=== PATIENT | male | born 1950 | race Caucasian/White ===

== ENCOUNTER 2018-05-19 10:34 | Observation (INO) | payer OTHER ==
[~2018-05-19] VITALS: Ht 170.2 cm; Wt 100.0 kg
--- NOTE | ~2018-05-19 | HEMODYNAMI ---
PATIENT:RADHA MELGAR MEDICAL RECORD: [id number] : 46 [facility] [id number] ADMISSION DATE: 05/19/18 Generatedon:05/19/201816:28 Patient name: RADHA MELGAR Patient #: [id number] SSN: : 1950 Date of study: 05/19/2018 Page: Of Hemodynamic Procedure Report Patient Data Patient Demographics Procedure consent was obtained First Name: RADHA Gender: Male Last Name: RAMÓN : 1950 Patient #: [id number] Age: 67 year(s) Race: Unknown Additional ID: [id number] Contact details [address]: [address] [place] [address] State: [place] City: [place] Zip code: [address] Past Medical History Allergies Allergen Reaction Date Comments Reported Aspirin 05/19/2018 Admission Admission Data Admission Date: 05/19/2018 Admission Time: 13:01 Room #: D.E08 Lab Results Lab Result Date: 05/19/2018 Lab Result Time: 0:00 Biochemistry Name Units Result Min Max BUN mg/dl 19 --(----)*- 7 18 Creatinine mg/dl 1 --(--*-)-- 0.6 1.3 CBC Name Units Result Min Max Hematocrit % 38.7 *-(----)-- 42 54 Hemoglobin g/dl 14.3 --(*---)-- 13.5 17.5 Procedure Procedure Types Cath Procedure Diagnostic Procedure LHC LH w/Coronaries Sedation Charges Moderate Sedation up to 30 minutes PCI Procedure Coronary Stent Coronary Stent Initial Procedure Description Procedure Date Procedure Date: 05/19/2018 Procedure Start Time: 16:10 Procedure End Time: 16:26 Procedure Staff Name Function Navin Rahman MD Performing Physician Lisa Meeks RT Monitor Chana Preciado RT Scrub Luther Vences RN Nurse Fan Casas RT Roll Over Press Operator Matilde Sandoval RT Monitor Procedure Data Cath Procedure Fluoroscopy Diagnostic fluoroscopy Total fluoroscopy Time: 5.6 time: 5.6 min min Diagnostic fluoroscopy Total fluoroscopy dose: dose: 1017 mGy 1017 mGy Contrast Material Contrast Material Type Amount (ml) Isovue 300 94 Entry Location Entry Primary Successful Side Size Upsize Upsize Entry Closure Pratt ccessful Closure Location (Fr) 1 (Fr) 2 (Fr) Remarks Device Remarks Radial Right 6 Fr Mechanical artery Short Compression Estimated blood loss: 10 ml Diagnostic catheters Device Type Used For End Catheter Placement DIAGNOSTIC Bast[place] 110cm 5 Procedure Fr catheter (100059) Procedure Complications No complications Procedure Medications Medication Administration Route Dosage Oxygen etCO2 Nasal cannula 2 l/min Heparin Flush Bag added to field 2 bags (1000units/500ml NS) 0.9% NaCl I.V. 100 ml/hr Lidocaine 2% added to field 20 Radial Cocktail added to field 1 syringe (Verapomil 2mg/Nitro 400mcg/Heparin 1500units) Fentanyl I.V. 50 mcg Versed I.V. 1 mg Fentanyl I.V. 50 mcg Versed I.V. 1 mg Radial Cocktail I.A. 1 syringe (Verapomil 2mg/Nitro 400mcg/Heparin 1500units) Heparin Bolus I.V. 4000 units Hemodynamics Rest HGB: 14.3 (g/dl) Heart Rate: 64 (bpm) Snapshots Pre Cath Intra NCS Post Cath Vital Signs Time Heart Resp SPO2 etCO2 NIBP (mmHg) Rhythm Pain Sedation Rate (ipm) (%) (mmHg) Status Level (bpm) 16:04:33 70 16 98 27 114/90(106) NSR 0 (11) 10(A) , No pain 16:09:17 60 17 98 17.9 147/92(110) NSR 0 (11) 10(A) , No pain 16:13:23 79 17 94 11.2 132/91(104) NSR 0 (11) 9(A) , No pain 16:17:25 81 17 94 16.4 132/87(106) NSR 0 (11) 9(A) , No pain 16:21:28 82 16 95 9.7 130/79(103) NSR 0 (11) 9(A) , No pain 16:25:30 77 17 96 36 132/87(110) NSR 0 (11) 9(A) , No pain Medications Time Medication Route Dose Verified Delivered Reason Not es Effectiveness by by 16:08:06 Oxygen etCO2 2 l/min Navin Sloan Per physician Nasal Lacey Vences RN cannula 16:08:14 Heparin Flush added 2 bags Navin Sloan used for Bag to Lacey Vences RN procedure (1000units/500ml field NS) 16:08:22 0.9% NaCl I.V. 100 Navin Sloan Per physician ml/hr Lacey Vences RN 16:08:30 Lidocaine 2% added 20ml Navin Sloan used for to vial Lacey Vences RN procedure field 16:08:38 Radial Cocktail added 1 Navin Sloan used for (Verapomil to syringe Lacey Vences RN procedure 2mg/Nitro field 400mcg/Heparin 1500units) 16:08:44 Fentanyl I.V. 50 mcg Navin Sloan for sedation Lacey Vences RN 16:08:49 Versed I.V. 1 mg Navin Sloan for sedation Lacey Vences RN 16:11:29 Fentanyl I.V. 50 mcg Navin Sloan for sedation Lacey Vences RN 16:11:33 Versed I.V. 1 mg Navin Sloan for sedation Lacey Vences RN 16:11:42 Radial Cocktail I.A. 1 Navin Navin for (Verapomil syringe Lacey Rahman MD vasodilation 2mg/Nitro 400mcg/Heparin 1500units) 16:17:11 Heparin Bolus I.V. 4000 Navin Sloan for units Lacey Vences RN anticoagulation Procedure Log Time Note 15:48:46 Signed procedure consent form obtained from patient. 15:48:47 Diagnostic Cath status Elective 15:48:52 Fan Casas RT(R) sent for patient. Start room use. 16:03:27 Patient received from ED to CCL 2 Alert and oriented. Tansferred to table in Supine position. 16:03:28 Warm blankets applied, and darian hugger turned on for patient comfort. 16:03:28 Correct patient and procedure confirmed by team. 16:03:29 ECG and BP/O2 sat monitors applied to patient. 16:03:30 Vital chart was started 16:03:31 Baseline sample Acquired. 16:03:35 Rhythm: sinus rhythm 16:03:36 Full Disclosure recording started 16:03:40 H&P Date Dictated: 05/19/2018 ER History on chart.. 16:03:41 Pre-procedure instructions explained to patient. 16:03:41 Pre-op teaching completed and patient verbalized understanding. 16:03:42 Family unavailable. 16:03:49 Patient allergic to Aspirin 16:04:02 PRE LOADED ON PLAVIX 16:04:04 Patient diabetic? No. 16:04:07 Previous problem with sedation/anesthesia? No ? 16:04:09 Snore? Yes 16:04:11 Sleep apnea? Yes 16:04:12 Deviated septum? No 16:04:13 Opens mouth fully? Yes 16:04:14 Sticks out tongue? Yes 16:04:15 Airway obstruction? No ? 16:04:17 Dentures? No ? 16:04:19 Modified Darryn's test Ulnar < 7 seconds 16:04:21 Patient pain scale 0/10 ?. 16:04:25 IV patent on arrival in left hand with 0.9% NaCl at [facility]. 16:04:47 Lab Result : BUN 19 mg/dl 16:04:47 Lab Result : Creatinine 1 mg/dl 16:04:47 Lab Result : Hemoglobin 14.3 g/dl 16:04:47 Lab Result : Hematocrit 38.7 % 16:04:51 Lab results completed and on chart. 16:04:54 Right Radial & Right Groin area was prepped with chlora-prep and draped in sterile fashion 16:04:55 Alarms reviewed by R. N. 16:04:55 Sharps counted by scrub and verified by R.N. 16:08:06 Oxygen 2 l/min etCO2 Nasal cannula was administered by Luther Vences RN; Per physician; 16:08:14 Heparin Flush Bag (1000units/500ml NS) 2 bags added to field was administered by Luther Vences RN; used for procedure; 16:08:22 0.9% NaCl 100 ml/hr I.V. was administered by Luther Vences RN; Per physician; 16:08:30 Lidocaine 2% 20ml vial added to field was administered by Luther Vences RN; used for procedure; 16:08:38 Radial Cocktail (Verapomil 2mg/Nitro 400mcg/Heparin 1500units) 1 syringe added to field was administered by Luther Vences RN; used for procedure; 16:08:44 Fentanyl 50 mcg I.V. was administered by Luther Vences RN; for sedation; 16:08:49 Versed 1 mg I.V. was administered by Luther Vences RN; for sedation; 16:09:35 --------ALL STOP TIME OUT------ 16:09:36 Final Timeout: patient, procedure, and site verified with staff and physician. All members of the team are in agreement. 16:09:38 Right Radial & Right Groin site verified by team. 16:09:41 Maximum allowable Isovue 300 dose 300ml. Physician notified. (300ml for normal creatinines. For patients with creatinine of 1.7 or higher multiply weight(kg) x 5 divided by creatinine.) 16:09:44 Fire Safety Assessment: A--An alcohol-based skin anteseptic being used preoperatively., C--Open oxygen or nitrous oxide is being used., D--An ESU, laser, or fiber-optic light is being used. 16:09:48 Physical assessment completed. ASA score P 2 - A patient with mild systemic disease as per Navin Rahman MD. 16:09:56 Sedation plan: IV Moderate Sedation Medication:Versed, Fentanyl 16:10:01 Procedure started. 16:10:03 Zero performed for pressure channel P1 16:10:37 Local anesthetic to right radial artery with Lidocaine 2% by Navin Rahman MD.INITIAL ACCESS ONLY 16:10:41 Use device set Radial Dx or PCI 16:10:42 ACIST Syringe (20093) opened to sterile field. 16:10:42 Bag Decanter () opened to sterile field. 16:10:44 ACIST Hand Control (79117) opened to sterile field. 16:10:44 ACIST Manifold (51711) opened to sterile field. 16:10:45 Tegaderm 4 x 4 (1626W) opened to sterile field. 16:10:46 Medline Cath Pack ([id number]) opened to sterile field. 16:10:47 DIAGNOSTIC WIRE .035 260cm J wire (866710) opened to sterile field. 16:10:47 MBrace Wrist Support ([id number]) opened to sterile field. 16:10:48 SHEATH 6FR Slender (82-6240) opened to sterile field. 16:11:05 A 6 Fr Short sheath was inserted into the Right Radial artery 16:11:14 A DIAGNOSTIC [place] 110cm 5 Fr catheter (141183) was advanced over the wire and used for Procedure. 16:11:29 Fentanyl 50 mcg I.V. was administered by Luther Vences RN; for sedation; 16:11:33 Versed 1 mg I.V. was administered by Luther Vences RN; for sedation; 16:11:42 Radial Cocktail (Verapomil 2mg/Nitro 400mcg/Heparin 1500units) 1 syringe I.A. was administered by Navin Rahman MD; for vasodilation; 16:11:52 LV gram done using SCHULTZ 16:11:56 Injector settings: Ml/sec: 5, Volume: 15, 16:12:01 EF : 60 % 16:12:47 LCA angiography performed. 16:14:07 Catheter exchanged over wire. 16:14:18 UNABLE TO ENGAGE RCA 16:14:36 GUIDE 6FR AR 2.0 catheter ([id number]) opened to sterile field. 16:14:53 6 Fr AR 2 guide catheter was inserted over the wire 16:15:25 RCA angiography performed. 16:16:05 CHOICE ES 182 wire advanced. 16:17:11 Heparin Bolus 4000 units I.V. was administered by Luther Vences RN; for anticoagulation; 16:17:23 Wire advanced across lesion. 16:18:49 The INTEGRITY RX 3.0 x 15 stent ([id number]) was advanced then removed because of failure to cross lesion 16:19:56 Inflate balloon Inflation number: 1 A EUPHORA 2.5 x 15 Balloon ([id number]) was prepped and advanced across the Mid RCA, then inflated to 17 CRISS for 0:10 (min:sec). 16:20:08 Balloon removed over the wire. 16:23:11 Place stent Inflation Number: 1 A INTEGRITY RX 3.0 x 15 stent ([id number]) was prepped and advanced across the Mid RCA1. The stent was deployed at 13 CRISS for 0:58 (min:sec). 16:23:22 TR BAND Standard ([id number]) opened to sterile field. 16:23:38 Wire removed. 16:23:39 Guide catheter removed. 16:23:52 Sheath removed intact; hemostasis achieved with Mechanical Compression to the Right Radial artery. 16:24:04 Procedure ended.(Physican Out) 16:24:23 Fluoroscopy time 05.60 minutes. 16:24:28 Fluoroscopy dose: 1017 mGy 16:24:28 Flurop Dose total: 1017 16:24:34 Contrast amount:Isovue 300 94ml. 16:24:36 Sharps counted by scrub and verified by R.N. 16:24:39 TR band inflated with 12cc of air. 16:24:40 Insertion/operative site no bleeding no hematoma. 16:24:41 Post Procedure Pulses reassessed and unchanged 16:24:45 Post-procedure physical assessment completed. ASA score P 2 - A patient with mild systemic disease as per Navin Rahman MD. 16:24:48 Estimated blood loss: 10 ml 16:24:50 Post procedure instruction explained to patient.Patient verbalizes understanding. 16:25:13 Procedure type changed to Cath procedure, Diagnostic procedure, LHC, LHC w/Coronaries, Sedation Charges, Moderate Sedation up to 30 minutes, PCI procedure, Coronary Stent, Coronary Stent Initial 16:25:15 Procedure and supply charges have been captured, reviewed, submitted and are correct. 16:25:33 Procedure Complication : No complications 16:25:36 Vital chart was stopped 16:25:37 See physician's report for complete and final results. 16:26:31 Report given to [facility]. 16:26:35 Patient transfered to [facility] with Bed. 16:26:38 Procedure ended. 16:26:38 Full Disclosure recording stopped 16:26:40 End room use (Document Last) Intervention Summary Intervention Notes Time ActionType Lesion and Equipment Action# Pressure Duration Attributes Used 16:18:49 Discard INTEGRITY RX Stent 3.0 x 15 stent ([id number]) 16:19:56 Inflate Mid RCA EUPHORA 2.5 1 17 00:10 balloon x 15 Balloon ([id number]) 16:23:11 Place stent Mid RCA1 INTEGRITY RX 1 13 00:58 3.0 x 15 stent ([id number]) Device Usage Item Name Manufacture Quantity Catalog Hospital Part Current Minima l Lot# / Number Charge Number Stock Stock Serial# Code ACIST Acist 1 20422 764191 162960 938427 20 Syringe ConXtech (84708) OmniPV Inc Bag Decanter Microtek 1 755987 67519 815084 5 (2002S) Medical Inc. ACIST Hand Acist 1 28712 289751 591073 985734 5 Control Medical (42913) Systems Inc ACIST Acist 1 77071 663735 942650 638726 5 Manifold Medical (84269) Systems Inc Tegaderm 4 x 3M 1 1626W 286414 635204 950591 5 4 (1626W) Medline Cath Medline 1 [id number] 897943 47038 761647 5 Pack ([id number]) DIAGNOSTIC St Denny 1 637160 295217 864739 787130 30 WIRE .035 260cm J wire (373327) MBrace Wrist Advanced 1 140-0250-00 203257 33415 948522 5 Support Vascular ([id number]) Dynamics SHEATH 6FR Terumo 1 [id number] 153702 697528 322683 5 Slender (80-1060) DIAGNOSTIC Terumo 1 40-9793 482180 197482 700342 5 [place]rop 110cm 5 Fr catheter (955207) GUIDE 6FR AR Medtronic 1 [id number] 659613 23586 282336 1 2.0 catheter ([id number]) INTEGRITY RX Medtronic 2 [id number] 019169 702756 232180 5 [id number] 3.0 x 15 [id number] stent ([id number]) EUPHORA 2.5 Medtronic 1 [id number] 102859 163557 098976 5 [id number] x 15 Balloon ([id number]) TR BAND Terumo 1 [id number] 580464 494405 159196 40 Standard ([id number]) Signature Audit [place] Stage Time Signature Unsigned Intra-Procedure 05/19/2018 Matilde Sandoval 4:28:07 PM RT(R) Signatures Monitor : Lisa Meeks Signature : RT Date : Time : Monitor : Matilde Sandoval Signature : RT Date : Time : [place] [address] [place] [address]
--- NOTE | ~2018-05-19 | HEMODYNAMI ---
PATIENT:RADHA MELGAR MEDICAL RECORD: [id number] : 46 LOCATION:[address] ADMISSION DATE: 05/19/18 Generatedon:05/20/201815:02 Patient name: RADHA MELGAR Patient #: [id number] SSN: : 1950 Date of study: 05/20/2018 Page: Of Hemodynamic Procedure Report Patient Data Patient Demographics Procedure consent was obtained First Name: RADHA Gender: Male Last Name: RAMÓN : 1950 Patient #: [id number] Age: 67 year(s) Race: Unknown Additional ID: [id number] Contact details Address: [address] [place] [address] State: [place] City: [place] Zip code: [address] Past Medical History Allergies Allergen Reaction Date Comments Reported Aspirin 05/19/2018 Admission Admission Data Admission Date: 05/19/2018 Admission Time: 13:01 Room #: [facility] Lab Results Lab Result Date: 05/19/2018 Lab Result Time: 0:00 Biochemistry Name Units Result Min Max BUN mg/dl 19 --(----)*- 7 18 Creatinine mg/dl 1 --(--*-)-- 0.6 1.3 CBC Name Units Result Min Max Hematocrit % 38.7 *-(----)-- 42 54 Hemoglobin g/dl 14.3 --(*---)-- 13.5 17.5 Procedure Procedure Types Cath Procedure PCI Procedure Coronary Stent Coronary Stent Initial Procedure Description Procedure Date Procedure Date: 05/20/2018 Procedure Start Time: 14:49 Procedure End Time: 15:00 Procedure Staff Name Function Navin Rahman MD Performing Physician Lisa Meeks RT Monitor Luigi Woods RN Nurse Fan Casas RT Scrub Procedure Data Cath Procedure Fluoroscopy Diagnostic fluoroscopy Total fluoroscopy Time: 2.7 time: 2.7 min min Diagnostic fluoroscopy Total fluoroscopy dose: 320 dose: 320 mGy mGy Contrast Material Contrast Material Type Amount (ml) Isovue 300 74 Entry Location Entry Primary Successful Side Size Upsize Upsize Entry Closure Succes sful Closure Location (Fr) 1 (Fr) 2 (Fr) Remarks Device Remarks Femoral Right 6 Fr Exoseal artery Short Estimated blood loss: 10 ml Procedure Complications No complications Procedure Medications Medication Administration Route Dosage 0.9% NaCl I.V. 100 ml/hr Oxygen etCO2 Nasal cannula 2 l/min Heparin Flush Bag added to field 2 bags (1000units/500ml NS) Lidocaine 2% added to field 20 Versed I.V. 2 mg Fentanyl I.V. 100 mcg Heparin Bolus I.V. 4000 units Hemodynamics Rest Heart Rate: 76 (bpm) Snapshots Pre Cath Intra NCS Post Cath Vital Signs Time Heart Resp SPO2 etCO2 NIBP Rhythm Pain Sedation Rate (ipm) (%) (mmHg) (mmHg) Status Level (bpm) 14:24:31 75 24 96 28.3 108/76(90) NSR 0 (11) 10(A) , No pain 14:28:37 73 20 97 11.9 124/78(92) NSR 0 (11) 10(A) , No pain 14:32:47 74 22 96 0 109/72(90) NSR 0 (11) 10(A) , No pain 14:36:55 76 24 97 0 112/76(86) NSR 0 (11) 10(A) , No pain 14:41:03 70 23 96 10.4 118/72(86) NSR 0 (11) 10(A) , No pain 14:45:15 77 26 97 22.4 106/70(90) NSR 0 (11) 10(A) , No pain 14:49:20 77 20 95 12.6 112/74(86) NSR 0 (11) 9(A) , No pain 14:54:19 81 22 96 14.1 116/72(85) NSR 0 (11) 9(A) , No pain 14:58:29 81 24 96 9.7 114/72(93) NSR 0 (11) 10(A) , No pain Medications Time Medication Route Dose Verified Delivered Reason Notes Effectiveness by by 14:23:18 0.9% NaCl I.V. 100 Luigi Luigi Per physician ml/hr Chuck Woods RN RN 14:23:29 Oxygen etCO2 2 Luigi Luigi for low 02 sats Nasal l/min Chuck Woods cannula RN RN 14:23:40 Heparin Flush added 2 Luigi Luigi used for Bag to bags Chuck Woods procedure (1000units/500ml [facility] RN RN NS) 14:23:51 Lidocaine 2% added 20ml Luigi Luigi for local to vial Chuck Woods anesthetic RN RN 14:49:29 Versed I.V. 2 mg Luigi Luigi for sedation Chuck Woods RN RN 14:49:37 Fentanyl I.V. 100 Luigi Luigi for sedation mcg Chuck Woods RN RN 14:52:15 Heparin Bolus I.V. 4000 Luigi Luigi for units Lorbhavesh Woods anticoagulation RN vehicle dismantler Log Time Note 13:56:00 Fan Casas RT(R) sent for patient. Start room use. 13:56:01 Time tracking: Regular hours (M-F 7:00 - 5:00) 13:56:06 Plan of Care:Hemodynamics will remain stable., Cardiac rhythm will remain stable., Comfort level will be maintained., Respiratory function will remain adequate., Patient/ family verbilizes understanding of procedure., Procedure tolerated without complication., Recovers from procedure without complications.. 14:13:52 Patient received from Med II to CCL 2 Alert and oriented. Tansferred to table in Supine position. 14:13:53 Warm blankets applied, and darian hugger turned on for patient comfort. 14:13:53 Correct patient and procedure confirmed by team. 14:13:55 Signed procedure consent form obtained from patient. 14:13:56 ECG and BP/O2 sat monitors applied to patient. 14:16:33 H&P Date Dictated: 05/20/2018 Within 30 days and on chart.. 14:16:34 Pre-procedure instructions explained to patient. 14:16:34 Pre-op teaching completed and patient verbalized understanding. 14:16:38 Family unavailable. 14:16:39 Patient NPO since Midnight. 14:16:57 Is the patient allergic to Iodine/contrast media? No. 14:17:04 Is patient on blood thinner?Yes 14:17:06 ACC The patient was administered the following blood thiners within the last 24 hours: ACCPlavix 14:17:53 Patient diabetic? No. 14:17:57 Previous problem with sedation/anesthesia? No ? 14:18:00 Snore? Yes 14:18:01 Sleep apnea? Yes 14:18:02 Deviated septum? No 14:18:04 Opens mouth fully? Yes 14:18:05 Sticks out tongue? Yes 14:18:07 Airway obstruction? No ? 14:18:10 Dentures? No ? 14:18:20 Pre procedure: right dorsailis pedis pulse 1+ Palpable, but thready & weak; easily obliterated 14:18:23 Patient pain scale 0/10 ?. 14:18:29 IV patent on arrival in left forearm with 0.9% NaCl at [facility]. 14:18:31 Lab results completed and on chart. 14:18:34 Right groin area was prepped with chlora-prep and draped in sterile fashion 14:18:35 Alarms reviewed by R. N. 14:18:35 Sharps counted by scrub and verified by R.N. 14:23:18 0.9% NaCl 100 ml/hr I.V. was administered by Luigi Woods RN; Per physician; 14:23:28 Vital chart was started 14:23:29 Oxygen 2 l/min etCO2 Nasal cannula was administered by Luigi Woods RN; for low 02 sats; 14:23:30 Baseline sample Acquired. 14:23:35 Rhythm: sinus rhythm 14:23:36 Full Disclosure recording started 14:23:40 Heparin Flush Bag (1000units/500ml NS) 2 bags added to field was administered by Luigi Woods RN; used for procedure; 14:23:51 Lidocaine 2% 20ml vial added to field was administered by Luigi Woods RN; for local anesthetic; 14:28:58 Use device set CATH PACK 14:28:59 ACIST Syringe (43769) opened to sterile field. 14:29:00 ACIST Hand Control (28183) opened to sterile field. 14:29:00 ACIST Manifold (79327) opened to sterile field. 14:29:00 Medline Cath Pack ([id number]) opened to sterile field. 14:29:00 Bag Decanter (2002S) opened to sterile field. 14:29:01 DIAGNOSTIC WIRE .035 260cm J wire (333320) opened to sterile field. 14:29:21 SHEATH 6FR Roxie (RTZ313) opened to sterile field. 14:29:21 INFLATOR Merit Margaret (TO9300) opened to sterile field. 14:29:22 CHOICE PT Extra Support 182cm wire ([id number]) opened to sterile field. 14:44:23 GUIDE 6FR XBLAD 3.5 catheter ([id number]) opened to sterile field. 14:44:43 Zero performed for pressure channel P1 14:47:31 --------ALL STOP TIME OUT------ 14:47:32 Final Timeout: patient, procedure, and site verified with staff and physician. All members of the team are in agreement. 14:47:34 Right groin site verified by team. 14:47:40 Maximum allowable Isovue 300 dose 300ml. Physician notified. (300ml for normal creatinines. For patients with creatinine of 1.7 or higher multiply weight(kg) x 5 divided by creatinine.) 14:47:43 Fire Safety Assessment: A--An alcohol-based skin anteseptic being used preoperatively., C--Open oxygen or nitrous oxide is being used., D--An ESU, laser, or fiber-optic light is being used. 14:47:46 Physical assessment completed. ASA score P 2 - A patient with mild systemic disease as per Navin Rahman MD. 14:47:50 Sedation plan: IV Moderate Sedation Medication:Versed, Fentanyl 14:49:17 Procedure started. 14:49:29 Versed 2 mg I.V. was administered by Luigi Woods RN; for sedation; 14:49:31 Local anesthetic to right femoral artery with Lidocaine 2% by Navin Rahman MD.INITIAL ACCESS ONLY 14:49:37 Fentanyl 100 mcg I.V. was administered by Luigi Woods RN; for sedation; 14:49:39 A 6 Fr Short sheath was inserted into the Right Femoral artery 14:49:56 6 Fr XBLAD 3.5 guide catheter was inserted over the wire 14:50:27 Guide Catheter removed. unable to cannulate vessel. 14:50:45 GUIDE 6FR XBLAD 4.0 catheter ([id number]) opened to sterile field. 14:50:54 6 Fr XBLAD 4 guide catheter was inserted over the wire 14:52:15 Heparin Bolus 4000 units I.V. was administered by Luigi Woods RN; for anticoagulation; 14:52:30 CHOICE ES 182 wire advanced. 14:52:31 Wire advanced across lesion. 14:53:37 Place stent Inflation Number: 1 A RAMESH RX 2.5 x 12 stent ([id number]) was prepped and advanced across the Mid LAD. The stent was deployed at 12 CRISS for 0:10 (min:sec). 14:53:50 Stent catheter was removed intact over wire. 14:55:03 Place stent Inflation Number: 1 A RAMESH RX 3.0 x 38 stent ([id number]) was prepped and advanced across the Prox LAD. The stent was deployed at 17 CRISS for 0:10 (min:sec). 14:55:36 Stent catheter was removed intact over wire. 14:55:38 Wire removed. 14:55:39 Guide catheter removed. 14:56:17 EXOSEAL 6Fr (EX600) opened to sterile field. 14:56:38 Sheath removed intact; hemostasis achieved with Exoseal to the Right Femoral artery. 14:56:39 Procedure ended.(Physican Out) 14:59:29 Fluoroscopy time 02.70 minutes. 14:59:38 Flurop Dose total: 320 14:59:38 Fluoroscopy dose: 320 mGy 14:59:41 Contrast amount:Isovue 300 74ml. 14:59:43 Sharps counted by scrub and verified by R.N. 14:59:45 Post-op/insertion site Right Femoral artery dressed using a 4 x 4 and Tegaderm. 14:59:48 Post-procedure physical assessment completed. ASA score P 2 - A patient with mild systemic disease as per Navin Rahman MD. 14:59:53 Post procedure rhythm: sinus rhythm 14:59:55 Estimated blood loss: 10 ml 14:59:56 Post procedure instruction explained to patient.Patient verbalizes understanding. 14:59:56 Patient needs reinforcement of post procedure teaching. 15:00:32 Procedure and supply charges have been captured, reviewed, submitted and are correct. 15:00:34 Procedure Complication : No complications 15:00:36 Vital chart was stopped 15:00:37 See physician's report for complete and final results. 15:00:38 Report given to Pre/Post Procedure Room. 15:00:40 Patient transfered to Pre/Post Procedure Room with Bed. 15:00:42 Procedure ended. 15:00:42 Full Disclosure recording stopped 15:00:45 End room use (Document Last) Intervention Summary Intervention Notes Time ActionType Lesion and Equipment Used Action# Pressure Duration Attributes 14:53:37 Place stent Mid LAD RAMESH RX 2.5 x 1 12 00:10 12 stent ([id number]) 14:55:03 Place stent Prox LAD RAMESH RX 3.0 x 1 17 00:10 38 stent ([id number]) Device Usage Item Name Manufacture Quantity Catalog Number Hospital Part Current M inimal Lot# / Charge Number Stock Stock Serial# Code ACIST Syringe Acist 1 62362 052053 889043 004501 2 0 (84121) Medical Systems Inc ACIST Hand Acist 1 54796 455665 594528 872280 5 Control Medical (12943) Systems Inc ACIST Manifold Acist 1 11063 219895 410716 006780 5 (46671) Medical Systems Inc Medline Cath Medline 1 [id number] 101080 49148 363808 5 Pack ([id number]) Bag Decanter Microtek 1 2001S 475818 72248 733434 5 () Medical Inc. DIAGNOSTIC St Denny 1 629118 916169 193545 745887 3 0 WIRE .035 260cm J wire (183340) SHEATH 6FR Terumo 1 YIQ018 893194 724853 990831 4 0 Roxie (VBS535) INFLATOR Merit Merit 1 AI2530 672207 886241 964266 1 5 [facility] (JF1608) CHOICE PT Sagola 1 [id number] 079056 672528 034248 5 Extra Support Scientific 182cm wire ([id number]) GUIDE 6FR Cardinal 1 [id number] 455251 048922 001974 1 0 XBLAD 3.5 Health catheter (74654967) GUIDE 6FR Cardinal 1 [id number] 605350 513008 700390 3 XBLAD 4.0 Health catheter (64806864) RAMESH RX 2.5 x Medtronic 1 [id number] 811507 7624594 624240 5 [id number] 12 stent ([id number]) RAMESH RX 3.0 x Medtronic 1 [id number] 690282 3359246 495161 5 [id number] 38 stent ([id number]) EXOSEAL 6Fr Cardinal 1 EX600 969088 022732 090311 1 0 (EX600) Health Signature Audit Machias Stage Time Signature Unsigned Intra-Procedure 05/20/2018 Lisa Meeks 3:02:33 PM RT(R) Signatures Monitor : Lisa Meeks Signature : RT Date : Time : [address] [address] [place] [address]
[2018-05-19 11:00] VITALS: BP 113/75
--- NOTE | 2018-05-19 11:05 | NUR ---
PT ALLERGIC TO ASA. TREATING PROVIDER Maritza JACKSON NOTIFIED.
[2018-05-19 11:12] LABS: BASOPHILS 0.6 % (0-2); EOSINOPHILS 1.6 % (0-7); HEMATOCRIT 38.7 % (42.0-54.0); HEMOGLOBIN 14.3 g/dL (13.5-17.5); IMMATURE GRANULOCYTES 0.6 % (0-5); MCH 36.2 pg (26.0-34.0); MONOCYTES 17.4 % (2-11); NEUTROPHILS 68.8 % (40-80); PLATELET COUNT 156 10x3/uL (130-400); RBC 3.95 10x6/uL (4.20-6.10); RDW 13.6 % (11.5-14.5); WBC 3.2 10x3/uL (4.8-10.8)
[2018-05-19 11:15] LABS: APTT 27.2 SECONDS (22.8-39.4); INR 1.05 (0.85-1.17); PROTIME 13.2 SECONDS (11.6-15.0)
[2018-05-19 11:17] LABS: ALBUMIN 3.7 g/dL (3.4-5.0); ALKALINE PHOSPHATASE 43 U/L (46-116); ALT (SGPT) 38 U/L (10-68); BILIRUBIN - TOTAL 0.63 mg/dL (0.2-1.3); CALC OSMOLALITY 284 mosm/kg (275-300); CALCIUM 8.3 mg/dL (8.5-10.1); CARBON DIOXIDE 27.9 mmol/L (21.0-32.0); CHLORIDE - SERUM 106 mmol/L (98-107); GLUCOSE 134 mg/dL (74-106); POTASSIUM - SERUM 4.2 mmol/L (3.5-5.1); PROTEIN - SERUM 6.4 g/dL (6.4-8.2); SODIUM 141 mmol/L (136-145); UREA NITROGEN 19 mg/dL (7-18); eGFR NON AFRICAN AMERICAN 79 mL/min (90-120)
[2018-05-19 11:27] LABS: CKMB 1.1 U/L (0.0-3.6); CREATINE KINASE 42 UL (21-232); MAGNESIUM - SERUM 1.8 mg/dL (1.8-2.4); TROPONIN-I 0.024 ng/mL (0.000-0.060)
[2018-05-19 12:01] VITALS: BP 127/68
[2018-05-19 13:00] VITALS: BP 154/83
--- NOTE | 2018-05-19 13:04 | NUR ---
NOTIFIED BY REGISTRATION THAT [facility] BECAUSE HE DOES NOT HAVE THE MONEY TO PAY FOR HIS COPAY. ARNIE SPOKE TO DR. DILLON WHO STATED THE PATIENT HAS UNSTABLE ANGINA AND IS NOT STABLE FOR TRANSFER AT THIS TIME. CM MET WIHT PATIENT AND EXPLAINED THE ABOVE. HE STATED HE IS AGREEABLE TO TRANSFER TO [facility] BUT WILL STAY RECOMMENDED BY DR. DILLON. CM CALLED [facility] AND NOTIFIED THEM THAT THE PATIENT IS IN OUR ER AND NOT STABLE FOR TRANSFER. ARNIE SPOKE TO ALOK AND NOTIFIED HER THAT THE PATIENT WAS HERE AND NOT STABLE FOR TRANSFER. SHE TOOK PATIENT'S INFORMATION AND STATED SHE HAS TO PLACE ON THE LIST AND HAVE A MD CALL OUR MD. CM VERBALIZIED UNDERSTANDING AND NOTIFIED DR. PEREZ OF THIS INFORMATION HE WILL BE RECEIVING THE CALL SINCE THE PATIENT IS STILL HERE IN THE ER.
--- NOTE | 2018-05-19 17:02 | NUR ---
TRANSFER FROM LIABILITY CLAIMS EXAMINER. VS WNL. RIGHT WRIST STABLE WITH TR BAND INTACT. WILL CONT. PLAN OF CARE.
[2018-05-19 17:25] VITALS: BP 131/82; Ht 170.2 cm; Wt 100.0 kg
[2018-05-19 20:00] VITALS: BP 132/73
--- NOTE | 2018-05-19 20:24 | NUR ---
RESUMED CARE OF PT, LYING IN BED WITH EYES CLOSED RESPIRATIONS EVEN AND UNLABORED 2LPM VIA NC. LEFT AC INFUSING NS @ 100, VSS. 72 SR ON TELEMETRY. RIGHT WRIST TR BAND WNL, 4CC OF AIR REMOVED. CALL LIGHT IN REACH. SEE NURSE ASSESSMENT.
--- NOTE | 2018-05-19 21:08 | NUR ---
3CC OF AIR REMOVED FOR A TOTAL OF 7
[2018-05-20] VITALS: BP 145/66
[2018-05-20 04:00] VITALS: BP 130/73
--- NOTE | 2018-05-20 07:15 | NUR ---
REPORT RECEIVED. WILL CONTINUE WITH POC. PT CURRENTLY LYING ON RIGHT SIDE. CALL LIGHT W/I REACH. PT IS AAO AND UP [place] BAY. NPO FOR CATH TODAY. R.WRIST CATH SITE IS C/D/I WITH NO S/S OF HEMATOMA. L.AC PIV IS SALINE LOCKED. RR EVEN AND UNLABORED ON 2L 02. PT DENIES ANY NEEDS AT THIS TIME. NO S/S OF DISTRESS NOTED. WILL CTM.
[2018-05-20 09:11] VITALS: BP 150/93
--- NOTE | 2018-05-20 10:43 | NUR ---
I have reviewed this patient and I concur with the Shift Assessment completed by the Licensed Practical Nurse today this shift.
[2018-05-20 11:42] VITALS: BP 120/78
--- NOTE | 2018-05-20 13:02 | NUR ---
PT CURRENTLY LYING SEMI FOWLERS. CALL LIGHT W/I REACH. PT IS STILL WAITING ON HEART CATH. WILL CTM. PT IRRITATED TO HOW LONG PROCEDURE IS TAKING.
--- NOTE | 2018-05-20 13:50 | NUR ---
PREOP MEDICATIONS ADMINISTERED PER OPERATIONS BUSINESS PARTNER TO FIRE HOSE CURER. PT TRANSFERED TO FIRE HOSE CURER.
[2018-05-20] MEDS ORDERED: PLAVIX75 MG PO (15:08)
[2018-05-20] MEDS ORDERED: PRAVACHOL40 MG PO (15:23)
--- NOTE | 2018-05-20 15:30 | NUR ---
RIGHT GROIN DRESSING C/D/I. NO S/S OF HEMATOMA NOTED. VSS. PT RESTING COMFORTABLY.
--- NOTE | 2018-05-20 16:00 | NUR ---
PT RESTING COMFORTABLY. RIGHT GROIN DRESSING C/D/I. NO S/S OF HEMATOMA NOTED. CALL LIGHT WITHIN REACH. VSS.
--- NOTE | 2018-05-20 16:30 | NUR ---
PT TOLERATING SIPS OF JUICE. DENIES NAUSEA. RIGHT GROIN DRESSING C/D/I. NO S/S OF HEMATOMA NOTED. VSS.
--- NOTE | 2018-05-20 17:06 | NUR ---
RIGHT GROIN DRESSING C/D/I. NO S/S OF HEMATOMA NOTED. VSS.
--- NOTE | 2018-05-20 17:58 | NUR ---
PT'S HEAD OF BED INC TO 30 DEGREES. PT TOLERATED WELL. RIGHT GROIN DRESSING C/D/I. NO S/S OF HEMATOMA NOTED. SET UP WITH SANDWICH TRAY AND JUICE. NO OTHER NEEDS AT THIS TIME. HE REPORTS THAT HE WAS ABLE TO FIND A RIDE. SHE WILL BE HERE AT 19:00 TO PICK HIM UP. PT HANDED URINAL AND CALL LIGHT WITHIN REACH.
--- NOTE | 2018-05-20 18:20 | NUR ---
PT VOIDED IN URINAL. 200 CC OF CLEAR YELLOW URINE NOTED.
--- NOTE | 2018-05-20 18:31 | NUR ---
RIGHT GROIN DRESSING C/D/I. NO S/S OF HEMATOMA NOTED. RIGHT A/C PIV D/C'D WITH CATH TIP INTACT. PT TOLERATED WELL. PT INSTRUCTED TO GET UP AND GET DRESSED.
--- NOTE | 2018-05-20 18:43 | NUR ---
DISCUSSED DISCHARGE INSTRUCTIONS WITH PT. HE VOICED UNDERSTANDING.
--- NOTE | 2018-05-20 18:56 | NUR ---
PT REFUSED WHEELCHAIR. AMBULATED TO VEHICLE. NO S/S OF DISTRESS NOTED.
--- NOTE | 2018-05-23 10:55 | OP ---
PATIENT NAME: RADHA MELGAR MEDICAL RECORD: [id number] :46 [facility]ATION:[facility] ADMISSION DATE:05/19/18 SURGEON: BETH DILLON MD DATE OF OPERATION: 05/19/2018 PROCEDURES: 1. PTCA stent RCA. 2. Left heart catheterization. 3. Selective coronary angiography. 4. Left ventriculogram. INDICATION: Angina and coronary artery disease. PROCEDURE IN DETAIL: After informed consent was obtained and after a detailed description of the risks, benefits as well as alternative therapies, the patient elected to proceed with angiogram and angioplasty. The right radial area was prepped and draped in normal sterile fashion. Right radial artery was cannulated via modified Seldinger technique with placement of 6-Thai sheath. All catheters exchanged through this sheath. FINDINGS: Left ventriculogram was performed in standard 30-degree SCHULTZ view, reveals good cardiac wall motion throughout all segments. Overall ejection fraction estimated 60%. SELECTIVE CORONARY ANGIOGRAPHY: 1. Left main is with no significant angiographic disease. 2. Left anterior descending has multiple areas of 90+ percent stenosis. 3. The left circumflex has mild irregularities, but no flow-limiting stenosis. 4. Right coronary has 80% stenosis in the mid vessel. PTCA STENT OF THE RCA: The stent used was a 3.0 x 15 mm Integrity. Result was 0% residual stenosis. OVERALL IMPRESSION: Successful percutaneous transluminal coronary angioplasty stent of the right coronary artery going from 80% initial stenosis to 0% residual. PLAN: PTCA stent of the LAD in the a.m. TRANSINT:[id number] Voice Confirmation ID: [id number] DOCUMENT ID: [id number] BETH DILLON MD at 1055 CC: [id number] DICTATION DATE: 05/19/18 1627 CLAY STRUCTURE BUILDER AND SERVICER: 05/19/18 2332 DIS IN 05/20/18 [place] [address]
--- NOTE | 2018-05-23 10:55 | DS ---
PATIENT:RADHA MELGAR :46 MEDICAL RECORD: [id number] DISCHARGE SUMMARY ADMISSION DATE: 05/19/18 DISCHARGE DATE: 05/20/18 DATE OF DISCHARGE: 05/20/2018. DISCHARGE DIAGNOSES: 1. Unstable angina. 2. Coronary artery disease. 3. Percutaneous transluminal coronary angioplasty stent right coronary artery and left anterior descending this admission. 4. Chronic lymphocytic leukemia. 5. Hyperlipidemia. HOSPITAL COURSE: Mr. Melgar presents with unstable anginal symptomatology, found to have significant disease of the RCA and LAD, underwent successful PTCA stent of both territories, was discharged home with the addition of aspirin, Plavix, Pravachol to his medical regimen. He will follow up with [facility] in 1 month. TRANSINT:[id number] Voice Confirmation ID: [id number] DOCUMENT ID: [id number] BTEH DILLON MD at 1055 CC: [id number] DICTATION DATE: 05/20/18 1505 VIDEO EDITING INTERNSHIP: 05/21/18 0024 DIS IN 05/20/18 [place] [id number]
--- NOTE | 2018-05-23 10:55 | OP ---
PATIENT NAME: RADHA MELGAR MEDICAL RECORD: [id number] :46 LOCATION:[facility] ADMISSION DATE:05/19/18 SURGEON: BETH DILLON MD DATE OF OPERATION: 05/20/2018 PROCEDURES: 1. PTCA stent LAD. 2. Selective coronary angiography. INDICATION: Angina and coronary artery disease. PROCEDURE IN DETAIL: After informed consent was obtained and after detailed description of risks, benefits as well as alternative therapies, the patient elected to proceed with angiogram and angioplasty. The right femoral area was prepped and draped in normal sterile fashion. Right femoral artery was cannulated via modified Seldinger technique with placement of 6-Swedish sheath. All catheters exchanged through this sheath. FINDINGS: The left anterior descending has multiple areas of 90% stenosis. This was addressed with a 2.5 x 12 and 3.0 x 38, both [place] stents. Result was 0% residual stenosis. OVERALL IMPRESSION: Successful percutaneous transluminal coronary angioplasty stent of the left anterior descending going from 90% initial stenosis to 0% residual. TRANSINT:[id number] Voice Confirmation ID: [id number] DOCUMENT ID: [id number] BETH DILLON MD at 1055 CC: [id number] DICTATION DATE: 05/20/18 1504 JOINT TERMINAL ATTACK CONTROLLER: 05/20/182014 DIS IN 05/20/[address] [address]
--- NOTE | 2018-05-23 10:55 | CN ---
PATIENT NAME:RADHA MELGAR MEDICAL RECORD: [id number] : 46 LOCATION:[facility] ADMIT DATE: 05/19/18 ACCOUNT: [id number] CONSULTING PHYSICIAN: BETH DILLON MD REFERRING PHYSICIAN: BETH DILLON MD DATE OF CONSULTATION: 05/19/2018 ADMITTING DIAGNOSES: 1. Chest pain compatible with angina. 2. Chronic lymphocytic leukemia. 3. Family history of coronary artery disease. HISTORY OF PRESENT ILLNESS: This is a gentleman with no history of ischemic heart disease who for the past 2 months has been having episodic chest pain that has been escalating, becoming more frequent and more severe. He had chest pain basically all night last night. His first episode of chest pain was in conjunction with a chemotherapy treatment for CLL and treatment had to be stopped. They have had to adjust his treatments due to recurrent chest pain. Since then, he has been having recurrent chest pain without having the treatments and last night he had chest pain at rest. He has had multiple GI treatments. This has not altered the progression of the chest discomfort. He does have risk factor of family history of ischemic vascular disease. PHYSICAL EXAMINATION: GENERAL APPEARANCE: Well-nourished, well-developed, appears stated age. Level of distress, comfortable. PSYCHIATRIC: Mental status, alert, normal affect. Orientation, oriented to time, place and person. EYES: Lids and conjunctiva, noninjected. No discharge, no pallor. ENT: Lips, teeth, gums, normal dentition. Oropharynx, no cyanosis, no pallor. NECK: Carotid arteries, bilateral normal upstroke, no bruits, no thrills. JUGULAR VEINS: No jugular venous pressure or distention. CERVICAL LYMPH NODES: Nontender, nonenlarged. THYROID: Not enlarged. Nontender. No nodules. LUNGS: Respiratory effort, unlabored. CHEST: Normal curvature. No thoracic deformity. No chest wall tenderness. Percussion, resonant. Auscultation, clear. No wheezes, no rales, no rhonchi. CARDIOVASCULAR: Precordial exam, nondisplaced. No heaves or pericardial thrills. Rate and rhythm, regular. Heart sounds, normal S1, normal S2. No S3, no gallop, no rub. Systolic murmur, not heard. Diastolic murmur, not heard. EXTREMITIES: No cyanosis, no edema. Peripheral pulses, full and equal in all extremities, except as noted. No bruits appreciated. ABDOMEN: Soft, nondistended. Normal aorta. No bruit. Nontender. No masses. Liver, nontender, no hepatomegaly. Spleen, nontender, no splenomegaly. MUSCULOSKELETAL: No joint tenderness. No joint swelling. No erythema. NEUROLOGICAL: Normal gait, normal strength, normal tone. SKIN: Warm and dry. EKG: His EKG is significantly abnormal, multifocal premature ventricular contractions. PLAN: He continues to have chest discomfort that was relieved with nitro, but it is back now. We will proceed with coronary angiography. Further care depends upon findings of the angiography. CONSULT REPORT [id number] RADHA MELGAR TRANSINT:[id number] Voice Confirmation ID: [id number] DOCUMENT ID: [id number] BETH DILLON MD at 1055 CC: [id number] DICTATION DATE: 05/19/18 1138 FLOTATION OPERATOR: 05/19/18 1321 DIS IN 05/20/18 [facility] [address] [place] [address]
== END 2018-05-20 18:55 | disposition home or self-care (01) ==
LOC: D.ER 10:34 → D.EDHOLD 13:01 → D.M2 13:01 → OBSVTIME 13:01 → D.M2 16:34 → D.CLR 05-20 15:07
PROVIDERS: Family Medicine; ADMIT Internal Medicine Interventional Cardiology; ATTEND Internal Medicine Interventional Cardiology
DX: I25.110 Atherosclerotic heart disease of native coronary artery with unstable angina pectoris (principal); C91.10 Chronic lymphocytic leukemia of B-cell type not having achieved remission; R94.31 Abnormal electrocardiogram [ECG] [EKG]; E78.5 Hyperlipidemia, unspecified